=== PATIENT | female | born 1970 | race Caucasian/White ===

== ENCOUNTER → 2020-05-09 | Outpatient (CLI) | payer BC ==
--- NOTE | 2020-05-09 17:18 | MR ---
EXAMINATION TYPE: MR lumbar spine wo con DATE OF EXAM: 05/09/2020 COMPARISON: Radiograph 04/11/2020 HISTORY: 50-year-old female low back pain TECHNIQUE: Multiplanar, multisequence images of the lumbar spine were acquired. FINDINGS: Vertebral body heights are preserved and alignment is maintained. There is a transitional lumbosacral segment that is being denoted as a lumbarized S1. Conus medullaris is normal. Mild heterogeneous marrow signal likely representing red marrow hyperplasia which can be seen with an emia, obesity, smoking, chronic disease. No suspicious bone marrow replacement. Mild degenerative disc disease with mild disc desiccation and mild disc bulging mid and lower lumbar spine. Hypertrophic facet arthropathy lower lumbar spine. No large focal disc herniation or spinal canal stenosis. On the right at L4-L5, there is a disc bulge towards the right minimally narrowing the inferior neuro foramen. At L5-S1, facet arthropathy contributes to minimal narrowing of the neuroforamen. On the left, facet arthropathy contributes to minimal narrowing at L4-L5 and L5-S1 neuroforamen. No prevertebral or paravertebral soft tissue abnormality. IMPRESSION: 1. Transitional lumbosacral segment denoted as a lumbarized S1. 2. Mild degenerative disc disease throughout. Hypertrophic facet arthropathy lower lumbar spine. No m alalignment. 3. No large focal disc herniation or significant spinal canal stenosis. 4. Variable minimal to mild neural foraminal narrowing as outlined above.
== END | disposition home or self-care (01) ==
LOC: RADMRIMAIN 10:51
PROVIDERS: ATTEND Orthopaedic Surgery
DX: M48.061 Spinal stenosis, lumbar region without neurogenic claudication (principal); M48.07 Spinal stenosis, lumbosacral region; M51.36 Other intervertebral disc degeneration, lumbar region; M47.816 Spondylosis without myelopathy or radiculopathy, lumbar region; Q76.49 Other congenital malformations of spine, not associated with scoliosis
CPT/HCPCS: 72148

== ENCOUNTER 2020-06-14 09:22 | Day surgery (SDC) | payer BC ==
[2020-06-10 09:10] VITALS: BMI 28.3
[2020-06-14 09:38] VITALS: TEMP 97
[2020-06-14] MEDS ORDERED: LACTATED RINGERS 1,000 ML IV ONE (09:42)
[2020-06-14] MEDS ORDERED: LIDOCAINE 1% (10MG/ML) FOR IV START INTRADERMA ONE (09:43)
[2020-06-14] MEDS ORDERED: ONDANSETRON 4 MG/2 ML VIAL ONE (09:46)
--- NOTE | 2020-06-14 10:12 | P.PCN ---
Date of Procedure: 06/14/20 Operative Findings: PREOPERATIVE DIAGNOSIS: Lumbar radiculopathy POSTOPERATIVE DIAGNOSIS: Lumbar radiculopathy Attending physician: Tommy Pelayo M.D. PROCEDURE 1. Transforaminal epidural steroid injection under fluoroscopic guidance left L4-L5, L5-S1 2. Lumbar epidurogram ANESTHESIA: Local with 1% lidocaine 3 ml ; IV sedation with Versed and fentanyl , sedation time 18 min PROCEDURE INDICATION: The patient with low back pain and radiculopathy symptoms unresponsive to conservative treatment. Fluoroscopy was used for the procedure and fluoroscopic images were saved to the radiology portion of patient's chart. PROCEDURE DESCRIPTION / TECHNIQUE: The patient was seen and identified in the preoperative area. Risks, benefits, complications, and alternatives were discussed with the patient. The patient agreed to proceed with the procedure and signed the consent. IV was started, and vital signs were stable. Patient was taken to the OR and time out was completed. The patient was placed in the prone position on procedure table and a pillow was placed under the abdomen to reduce lumbar lordosis. The lumbosacral area was prepped and draped in the usual sterile fashion. Vital signs were closely monitored during the procedure. Conscious sedation was used. Using oblique fluoroscopy, the chin of the ``Zeferino dog and the skin and deeper tissues just below was localized with 1% lidocaine. Subsequently, a 22- gauge 3.5-inch spinal needle was advanced under a tunneled view fluoroscopic guidance just underneath the chin of the ``Zeferino dog of the L4 SAP . Under lateral fluoroscopy, the needle was then advanced to the posterior border of the foramen. After negative aspiration of CSF and blood and with no paresthesias, 1 mL of Isovue-200 contrast dye was injected under live fluoroscopy and there was no evidence of intravascular injection. The injectate solution consisting of 5 mg of dexamethasone with 1.5 mL of 0.5% ropivacaine was then delivered. The needle was withdrawn intact. Procedure was then repeated at the L5-S1 level At the end of the procedure, skin was cleansed, and bandages were applied. COMPLICATIONS: None, of ntoe the L5 vertebral body is lumbarized. Recommend using 5 inch for next procedure COMMENTS: DISPOSITION / PLANS: The patient was placed in a supine position and transferred to the recovery area in a stable condition for observation. There was no evidence of lower extremity motor or sensory deficit after the procedure. Patient was discharged from the recovery room after meeting discharge criteria. Home discharge instructions were given to the patient by the staff. The patient will follow up procedure in 2-4 weeks.
[2020-06-14] MEDS ORDERED: IV FLUID CONTINUATION 550 ML IV ONE (10:18)
--- NOTE | 2020-06-14 10:26 | FL ---
EXAMINATION TYPE: FL guided pain mgmt statistic DATE OF EXAM: 06/14/2020 CLINICAL HISTORY: Low back pain. TECHNIQUE: Fluoroscopy. COMPARISON: None. FINDINGS: Fluoroscopic guidance was provided during pain relief procedure performed by Dr. Pelayo . A total of 21 seconds of fluoroscopic time was utilized during the procedure and 3 spot images are a cquired. Images acquired shows needle localization at roughly L4 level from posterior approach with contrast injection off the midline. IMPRESSION: As Above.
[2020-06-14 10:48] VITALS: BP 111/74; PULSE 60; RESP 20
[2020-06-14] MEDS ORDERED: MIDAZOLAM 2 MG/2 ML VIAL ONE (19:46)
[2020-06-14] MEDS ORDERED: IOPAMIDOL M200 10 ML VIAL ONE (19:46)
[2020-06-14] MEDS ORDERED: fentaNYL (PF) 50 MCG/ML 2 ML AMP ONE (19:46)
[2020-06-14] MEDS ORDERED: ROPIVACAINE 5MG/ML 20ML VIAL ONE (19:46)
[2020-06-14] MEDS ORDERED: DEXAMETHASONE SOD PHOSPHATE 10 MG/ML 1 ML VIAL ONE (19:46)
== END 2020-06-14 10:49 | disposition home or self-care (01) ==
LOC: ORPAIN 09:22
PROVIDERS: ATTEND Anesthesiology
DX: M54.16 Radiculopathy, lumbar region (principal); Z78.0 Asymptomatic menopausal state
CPT/HCPCS: 64483; 64484; J2250; J1100; J2405; J3010; Q9966; J2795; 99152

== ENCOUNTER 2020-08-09 13:05 | Day surgery (SDC) | payer BC ==
[2020-07-19 15:50] VITALS: BMI 30.5
[~2020-08-09 13:05] MED LIST: LACTATED RINGERS 1,000 ML IV SCH
[2020-08-09] MEDS ORDERED: LIDOCAINE 1% (10MG/ML) FOR IV START INTRADERMA ONE (14:13)
[2020-08-09] MEDS ORDERED: ONDANSETRON 4 MG/2 ML VIAL ONE (14:15)
[2020-08-09] MEDS ORDERED: ONDANSETRON 4 MG/2 ML VIAL IVP ONE (14:18)
[2020-08-09 14:22] VITALS: RESP 16; TEMP 98.1
[2020-08-09] MEDS ORDERED: MIDAZOLAM 2 MG/2 ML VIAL ONE (14:43)
[2020-08-09] MEDS ORDERED: IOPAMIDOL M200 10 ML VIAL ONE (14:43)
[2020-08-09] MEDS ORDERED: fentaNYL (PF) 50 MCG/ML 2 ML AMP ONE (14:43)
[2020-08-09] MEDS ORDERED: methylPREDNISolone ACETATE 40 MG/ML 1 ML VIAL ONE (14:43)
--- NOTE | 2020-08-09 15:00 | P.PCN ---
Date of Procedure: 08/09/20 Procedure(s) Performed: PREOPERATIVE DIAGNOSIS: Lumbar radiculopathy . POSTOPERATIVE DIAGNOSIS: Same as preoperative diagnoses. PROCEDURE 1. Transforaminal epidural steroid injection under fluoroscopic guidance at left L4-5, L5-S1 leveles. (Fluoroscopy images stored on file in the radiology Department ) 2. Lumbar epidurogram . (#2 ) ANESTHESIA: Local with 1% lidocaine 3 ml , moderate sedation with intravenous Versed 2 mg ,and fentanyle 100 micrograms. EBL: Minimal PROCEDURE INDICATION: The patient with low back pain and radiculopathy symptoms unresponsive to conservative treatment. PROCEDURE DESCRIPTION / TECHNIQUE: The patient was seen and identified in the preoperative area. Risks, benefits, complications, and alternatives were discussed with the patient. The patient agreed to proceed with the procedure and signed the consent. IV was started, and vital signs were stable. Patient was taken to the OR and time out was completed. The patient was placed in the prone position on procedure table and a pillow was placed under the abdomen to reduce lumbar lordosis. The lumbosacral area was prepped and draped in the usual sterile fashion. Critical pause was taken. Vital signs were closely monitored during the procedure. Conscious sedation was used during the procedure to decrease patient s anxiety. Using oblique fluoroscopy, the chin of the ``Zeferino dog at left L4-5 level was identified, and the skin and deeper tissues just below was localized with 1% lidocaine. Subsequently, a 22-gauge 5-inch spinal needle was advanced under a tunneled view fluoroscopic guidance just underneath the chin of the ``Zeferino dog at the left L4-5 Under lateral fluoroscopy, the needle was then advanced to the posterior border of the interforaminal space. After negative aspiration of CSF and blood and with no paresthesias, 1 mL Isovue 200 contrast dye was injected excellent epidurogram and outlining of the nerve root Subsequently, 3 mL of block solution containing 40 mg Depo-Medrol and 2 mL of 0.9% normal saline PF was injected. Needle was removed and the same procedure was repeated at the left L5-S1 level . At the end of the procedure, skin was cleansed, and bandages were applied. COMPLICATIONS:none DISPOSITION / PLANS: The patient was placed in a supine position and transferred to the recovery area in a stable condition for observation. There was no evidence of lower extremity motor or sensory deficit after the procedure. Patient was discharged from the recovery room after meeting discharge criteria. Home discharge instructions were given to the patient by the staff. The patient was reexamined prior to discharge.
[2020-08-09] MEDS ORDERED: IV FLUID CONTINUATION 750 ML IV ONE (15:02)
--- NOTE | 2020-08-09 15:17 | FL ---
Fluoroscopy HISTORY: Pain 3 seconds fluoroscopy time supplied to the referring clinician. 1 intraoperative C-arm images doc ument the procedure. See dictated report from anesthesia.
[2020-08-09 15:23] VITALS: BP 117/80; PULSE 57
== END 2020-08-09 15:29 | disposition home or self-care (01) ==
LOC: ORPAIN 13:05
PROVIDERS: ATTEND Specialist
DX: M47.26 Other spondylosis with radiculopathy, lumbar region (principal); Z98.51 Tubal ligation status; Z78.0 Asymptomatic menopausal state
CPT/HCPCS: 64483; 64484; J2250; J1030; J2405; J3010; Q9966

== ENCOUNTER → 2020-11-07 | Outpatient (CLI) | payer BC ==
[2020-11-07 08:12] VITALS: BP 110/72; PULSE 71; RESP 16; TEMP 97.6
--- NOTE | 2020-11-07 08:21 | P.PN ---
Subjective Progress Note Date: 11/07/20 Principal diagnosis: Russell Jones is a 50-year-old female who presents today for follow-up for low back pain. She reports she's had this back pain for quite some time, she had greater than 80% relief with the previous epidural steroid injections that she had in July. In greater than 4 months since her last injection. She reports that pain is starting to creep back up. She has low back pain across both sides the left side compared to the right. there are some none sensations down her leg. there is no weakness in the lower extremity. she has difficulty standing for long periods time or sits standing up from a seated position. she denies any bowel or bladder incontinence. denies any neck pain or upper extremity weakness. she also has knee pain which she is undergoing physical therapy for she'll participate in low back physical therapy for some time without any s ignificant relief. we discussed that she needs to continue doing EXERCISE and regular basis. we do not prescribe any medications for this Objective - Vital Signs Vital signs: Vital Signs Temp 97.6 F 11/07/20 08:04 Pulse 71 11/07/20 08:04 Resp 16 11/07/20 08:04 BP 110/72 11/07/20 08:04 Pulse Ox 98 11/07/20 08:04 - Exam General: Awake and alert oriented 3 no distress Respiratory exam: No audible wheezing no accessory muscle usage Cardiovascular exam: regular rate, palpable bilateral pulses, no lower extremity edema Abdominal exam: No distention nontender to palpation Cervical spine: Normal alignment, Spurling's negative, facet loading negative, [place] [employer] strength is 5/5, nicolas negative Lumbar spine: Loss of lumbar lordosis, normal alignment, tender to palpation over bilateral paraspinal muscles, facet loading is positive bilaterally. Straight leg raise is positive on the left compared to the right. Limited range of motion due to pain with flexion, extension and side bending. Sacroiliac joints: Tender to palpation over bilateral SI joints and trochanteric bursa bilaterally. Kiki's test is negative. Neuro exam: Normal sensation in bilateral upper extremities, deep tendon reflexes are 2+ bilateral upper extremities. Normal sensation in bilateral lower extremities. Deep tendon reflexes are 1+ bilateral patella and 1+ left Achilles 2+ right Achilles Psych exam: Cooperative, appropriate mood Assessment and Plan Assessment: #1 lumbar radiculopathy #2 lumbar degenerative disc disease #3 Bertolotti's disease Plan: Since isn't had very good relief from the previous injections, spend greater than 4 months since her last injection we can repeat the injection at the left L4 5 and L5-S1 transforaminal epidural steroid injections. I discussed the ster oid load with her and advised her not to have any other steroid injections from any other physician at this time as it can increase her risk of hyperglycemia as well as adrenal insufficiency. She verbalized understanding. We'll schedule her for repeat injections at her convenience. If she is not improved, we should discussed possible left-sided facet joint medial branch blocks and radiofrequenc y ablation. No medications were dispensed today I have spent 22 minutes on patient care today. The time was used to review the medical records including relevant urine studies and Prescription history (MAPs), review of the available imaging, evaluation and examination of the patient, coordination of care with the medical staff and if applicable referring physicians, as well as creation of the medical record. Maps were checked and appropriate, opioid start talking form is on file and updated, urine drug screens of been appropriate and have been reviewed.
== END ==
LOC: PNWHC3 07:55
PROVIDERS: ATTEND Hospitalist
DX: M51.16 Intervertebral disc disorders with radiculopathy, lumbar region (principal); Q76.49 Other congenital malformations of spine, not associated with scoliosis
CPT/HCPCS: 99211

== ENCOUNTER 2020-11-29 06:23 | Day surgery (SDC) | payer BC ==
[2020-11-25 10:39] VITALS: BMI 32.4
[2020-11-29 06:47] VITALS: TEMP 97.2
[2020-11-29] MEDS ORDERED: LIDOCAINE 1% (10MG/ML) FOR IV START INTRADERMA ONE (06:55)
[2020-11-29] MEDS ORDERED: fentaNYL (PF) 50 MCG/ML 2 ML AMP ONE (07:26)
[2020-11-29] MEDS ORDERED: IOPAMIDOL M200 10 ML VIAL ONE (07:26)
[2020-11-29] MEDS ORDERED: DEXAMETHASONE SOD PHOSPHATE 10 MG/ML 1 ML VIAL ONE (07:26)
[2020-11-29] MEDS ORDERED: MIDAZOLAM 2 MG/2 ML VIAL ONE (07:26)
--- NOTE | 2020-11-29 07:49 | P.PCN ---
Date of Procedure: 11/29/20 Surgeon: Donny Noe Pathology: none sent Condition: stable Disposition: PACU Description of Procedure: PREOPERATIVE DIAGNOSIS: Lumbar radiculopathy POSTOPERATIVE DIAGNOSIS: Lumbar radiculopathy PROCEDURE 1. Transforaminal epidural steroid injection under fluoroscopic guidance at L4- 5, and L5-S1 left 2. Lumbar epidurogram. SURGEON: Donny Noe MD ANESTHESIA: Local with 1% lidocaine; IV sedation with Versed and fentanyl. EBL: Minimal PROCEDURE INDICATION: The patient with low back pain and radiculopathy symptoms unresponsive to conservative treatment. PROCEDURE DESCRIPTION / TECHNIQUE: The patient was seen and identified in the preoperative area. Risks, benefits, complications, and alternatives were discussed with the patient. The patient agreed to proceed with the procedure and signed the consent. IV was started, and vital signs were stable. Patient was taken to the OR and time out was completed. The patient was placed in the prone position on procedure table and a pillow was placed under the abdomen to reduce lumbar lordosis. The lumbosacral area was prepped and draped in the usual sterile fashion. Critical pause was taken. Vital signs were closely monitored during the procedure. Conscious sedation was used during the procedure to decrease patients anxiety. The vertebral body of the lumbar vertebra L4, thenL5 were squared off by tilting the C-arm cephalad then the C-arm was tilted to the oblique position and the target point was at the 6 o'clock position of the pedicle of then skin and deeper tissues were localized with 1% lidocaine. Subsequently, a 22- gauge 5-inch spinal needle was advanced under a tunneled view fluoroscopic guidance just underneath the chin of the Zeferino dog at the . Under lateral fluoroscopy, the needle was then advanced to the middle of the upper one third of the foramen between(L4-5,then L5-S1 ). After negative aspiration of CSF and blood and with no paresthesias, 1 mL of omnipaque contrast dye was injected excellent epidurogram and outlining of the L4, then L5 nerve root was identified. Subsequently, 1.5 mL of block solution containing 10 mg of Decadron and 2 mL of Lidocaine 1% PF was injected at each level. Needle was removed . At the end of the procedure, skin was cleansed, and bandages were applied. COMPLICATIONS: None COMMENTS: A copy of needle placement was saved to the C-arm machine DISPOSITION / PLANS: The patient was placed in a supine position and transferred to the recovery area in a stable condition for observation. There was no evidence of lower extremity motor or sensory deficit after the procedure. Patient was discharged from the recovery room after meeting discharge criteria. Home discharge instructions were given to the patient by the staff.
[2020-11-29] MEDS ORDERED: IV FLUID CONTINUATION 750 ML IV ONE (07:50)
[2020-11-29 07:56] VITALS: RESP 20
--- NOTE | 2020-11-29 08:07 | FL ---
EXAMINATION TYPE: FL guided pain mgmt statistic DATE OF EXAM: 11/29/2020 CLINICAL HISTORY: Low back pain. TECHNIQUE: Fluoroscopy. COMPARISON: None. FINDINGS: Fluoroscopic guidance was provided during pain relief procedure performed by Dr. Noe . A total of 14 seconds of fluoroscopic time was utilized during the procedure and 4 spot images are acquired. Images acquired shows needle localization at several levels in the lumbar spine. IMPRESSION: As Above.
[2020-11-29 08:18] VITALS: PULSE 70
[2020-11-29 09:36] VITALS: BP 106/68
== END 2020-11-29 08:19 | disposition home or self-care (01) ==
LOC: ORPAIN 06:23
PROVIDERS: ATTEND Anesthesiology
DX: M54.16 Radiculopathy, lumbar region (principal); M32.9 Systemic lupus erythematosus, unspecified; N95.9 Unspecified menopausal and perimenopausal disorder
CPT/HCPCS: 64483; 64484; J2250; J1100; J2001; J3010; Q9966; 99152

== ENCOUNTER → 2021-01-23 | Outpatient (CLI) | payer BC ==
[2021-01-23 08:43] VITALS: BP 122/82; PULSE 59; RESP 16; TEMP 97.6
--- NOTE | 2021-01-23 09:01 | P.PN ---
Subjective Progress Note Date: 01/23/21 Follow visit for this 50 years old female with a chronic history of severe low back pain, she is diagnosed with lumbar radiculopathy, lumbar foraminal stenosis and lumbar degenerative disc disease, lumbar spondylosis with lumbar facet arthropathy, previously we have done left-sided transforaminal epidural steroid injection at L4 5 and L5-S1 3, patient reported that she got a few weeks of pain relief after each injection, she is complaining of severe low back pain bilaterally but it's more prominent on the left side (80% on the left ) denies any motor or sensory deficit she denies any fever or night sweats , she tried physical therapy in the past without any significant benefit, use [id number] medication for pain relief without any benefit. Objective - Vital Signs Vital signs: Vital Signs Temp 97.6 F 01/23/21 08:41 Pulse 59 L 01/23/21 08:41 Resp 16 01/23/21 08:41 BP 122/82 01/23/21 08:41 Pulse Ox 97 01/23/21 08:41 - Exam Physical Examinations : -Constitutiona : Cooperative , not in acute distress . -HEENT : nech : supple , no Lymphadenopathy , normal thyroid size . : eyes : no ptosis , no icterus, no photophobia . - neurologic : Cranial nerve II to XII intact , no focal neurological deffecit . -psychatric : alert , oriented X 3 , appropriate affect , intact judgment and insight . -Lymphatic : no Lymphadenopathy . - musculoskeltal : Lumber spine moter stegnth lower extremities ,thigh and legs 5/5 Right side , 5/5 Left side deep tendon reflexes : normal Knee Jerk , normal ankle Jerk lumber facet Loading Test =positive Right , positive Left Range of motion of the lumbar spine Flexion 30 degrees, extension 10 degrees strait leg raising test = negative bilaterally Fabere test= positive Right , and positive LT . Sever tenderness over the Sacroiliac joint on the Left sides Gaenslen test= positive left . Seated flexion test= positive Left . Distraction test= positive left Tenderness over the left trochanteric bursa MRI of the lumbar spine done at the current [facility]= L4 5 and L5-S1 degenerative disc disease and bilateral foraminal stenosis and lumbar facet arthropathy Assessment and Plan Plan: Assessment and plan=1-lumbar radiculopathy. 2-lumbar foraminal stenosis. 3-lumbar degenerative disc disease. 4-lumbar spondylosis with lumbar facet arthropathy. She continued to have severe low back pain after left transforaminal epidural steroid injection 3 Patient could benefit from diagnostic medial branch block and possible RFA of L3,L4 ,L5 Medial Branch bilateral - PQRS measures = - Patient's medications are documented in the chart. -Tobacco use is negative and counseling.Given. -Patient's has not received pneumococcal vaccine. -Advanced care planning discussed, patient not eligible. -Opiate contract not signed. -Pain positive and follow-up visit/procedure is scheduled. -Patient's blood pressure measured [ 122/82 ] , and documented in the record ,and patient will follow up with the primary care. -Patient's weight was measured and body mass index [ ] above the normal limits and counseling was done. and patient instructed to follow-up with the primary care physician. -Patient was not identified as an unhealthy alcohol user Time with Patient: Less than 30
== END | disposition home or self-care (01) ==
LOC: PNWHC3 08:30
PROVIDERS: ATTEND Specialist
DX: M48.061 Spinal stenosis, lumbar region without neurogenic claudication (principal); M51.16 Intervertebral disc disorders with radiculopathy, lumbar region; M46.96 Unspecified inflammatory spondylopathy, lumbar region; M47.26 Other spondylosis with radiculopathy, lumbar region
CPT/HCPCS: 99211

== ENCOUNTER 2021-02-14 06:10 | Day surgery (SDC) | payer BC ==
[2021-02-10 13:26] VITALS: BMI 33.7
[2021-02-14 06:42] VITALS: TEMP 97.8
[2021-02-14] MEDS ORDERED: LACTATED RINGERS 1,000 ML IV ONE (06:48)
[2021-02-14] MEDS ORDERED: fentaNYL (PF) 50 MCG/ML 2 ML AMP ONE ×2 (07:28→07:53)
[2021-02-14] MEDS ORDERED: ROPIVACAINE 5MG/ML 20ML VIAL ONE ×2 (07:28→07:53)
[2021-02-14] MEDS ORDERED: TRIAMCINOLONE ACETONIDE 40 MG/ML 1 ML VIAL ONE ×2 (07:28→07:53)
[2021-02-14] MEDS ORDERED: MIDAZOLAM 2 MG/2 ML VIAL ONE ×2 (07:28→07:53)
--- NOTE | 2021-02-14 07:45 | P.PCN ---
Date of Procedure: 02/14/21 Surgeon: Donny Noe Pathology: none sent Condition: stable Disposition: PACU Description of Procedure: PREOPERATIVE DIAGNOSIS : 1- Lumbar spondylosis with Facet Arthropathy without myelopathy . 2- Lumber degenerative disc disease POSTOPERATIVE DIAGNOSIS: 1- Lumbar spondylosis with Facet Arthropathy without myelopathy . 2- Lumber degenerative disc disease PROCEDURE: Diagnostic bilateral L4 -5 , and L5-S1 medial branch block under fluoroscopy Physician: Donny Noe MD ANESTHESIA: Local with 1% lidocaine; IV moderate conscious sedation with Versed 2 mg and fentanyl 100 g . EBL: Negligible COMPLICATION: None. PROCEDURE INDICATION: Chronic low back pain secondary to Facet arthropathy unresponsive to conservative treatment. PROCEDURE DESCRIPTION: the patient was seen and identified in the preop holding area , risks and benefits and possible complications of the procedure and alternatives were discussed with the patient, and the patient agreed to proceed with the procedure and signed the consent. IV was started and vital signs monitored during the procedure and fluoroscopy was used to maximize the benefit and accuracy of the needle placement, sedation was given to decrease patient anxiety, patient was taken to the procedure room and placed in prone position vital signs monitored. The patient was brought into the procedure room and placed in prone position. Skin was prepped with Chloraprep and draped in a sterile manner. Lidocaine 1% was used to numb the skin up at the target points that were chosen as follows: at the L5-S1 level which corresponds to the dorsal ramus of L5 the target points were at the superior medial aspect of the sacral ala on each side of the spine on the AP view of fluoroscopy, and for the L3 and L4 medial branches the target points were the connection between the transverse process and the superior to go process of L4 and L5 respectively on the oblique views of fluoroscopy. I used 22-gauge 3-1/2 inch Quincke spinal needles for this procedure and after contacting bone at the target points mentioned above I injected 1 mL of a mixture of Kenalog 40 mg +5 MLS of Ropivacaine 0.5% PF . Patient tolerated procedure well. At the end of the procedure the needles removed and a bandage applied after the skin was cleaned the cleaning solution. patient was then taken to the recovery room in stable condition and monitored in the recovery room for 20-30 minutes and discharged home in stable condition after discharge criteria met . A copy of the needle placement picture was saved to the C-arm machine.
[2021-02-14] MEDS ORDERED: IV FLUID CONTINUATION 1,000 ML IV ONE ×2 (07:49)
[2021-02-14 07:52] VITALS: RESP 16
[2021-02-14 08:09] VITALS: BP 93/54; PULSE 66
--- NOTE | 2021-02-14 08:15 | FL ---
EXAMINATION TYPE: FL guided pain mgmt statistic DATE OF EXAM: 02/14/2021 CLINICAL HISTORY: Low back pain. TECHNIQUE: Fluoroscopy. COMPARISON: None. FINDINGS: Fluoroscopic guidance was provided during pain relief procedure performed by Dr. Noe . A total of 9 seconds of fluoroscopic time was utilized during the procedure and 4 spot images are a cquired. Images acquired shows needle localization at several levels in the lumbar spine. IMPRESSION: As Above.
== END 2021-02-14 08:26 | disposition home or self-care (01) ==
LOC: ORPAIN 06:10
PROVIDERS: ATTEND Anesthesiology
DX: M47.816 Spondylosis without myelopathy or radiculopathy, lumbar region (principal); G89.29 Other chronic pain; M51.36 Other intervertebral disc degeneration, lumbar region
CPT/HCPCS: 64493; 64494; J2250; J3301; J3010; J2795; 99152

== ENCOUNTER 2021-03-21 08:25 | Day surgery (SDC) | payer BC ==
[2021-03-15 14:31] VITALS: BMI 34.1
[2021-03-21 09:02] VITALS: TEMP 98.5
[2021-03-21] MEDS ORDERED: LIDOCAINE 1% (10MG/ML) FOR IV START INTRADERMA ONE (09:03)
[2021-03-21] MEDS ORDERED: ROPIVACAINE 5MG/ML 20ML VIAL ONE (09:11)
[2021-03-21] MEDS ORDERED: TRIAMCINOLONE ACETONIDE 40 MG/ML 1 ML VIAL ONE (09:11)
[2021-03-21] MEDS ORDERED: MIDAZOLAM 2 MG/2 ML VIAL ONE (09:11)
[2021-03-21] MEDS ORDERED: fentaNYL (PF) 50 MCG/ML 2 ML AMP ONE (09:11)
[2021-03-21] MEDS ORDERED: MIDODRINE HCL 2.5 MG PO PRN (09:22)
[2021-03-21] MEDS ORDERED: ALPRAZolam 0.25 MG TAB PO PRN (09:22)
[2021-03-21] MEDS ORDERED: EMGALITY IJ SCH (09:30)
[2021-03-21] MEDS ORDERED: ARIPiprazole 5 MG TAB PO SCH (09:30)
[2021-03-21] MEDS ORDERED: LACTATED RINGERS 1,000 ML IV SCH (09:30)
[2021-03-21] MEDS ORDERED: ESTRADIOL TRANSDERM SCH (09:30)
--- NOTE | 2021-03-21 09:38 | P.PCN ---
Date of Procedure: 03/21/21 Operative Findings: Pre- and Post-operative Diagnosis: Lumbar facet arthropathy, and lumbar spondylosis without myelopathy. Procedure: #2 Diagnostic Medial Branch Block at bilateral Lumbar 4/5 and #2 diagnostic dorsal ramus block at Lumbar 5/ sacral ala levels (total 4 levels) Surgeon: Alex Ocampo Anesthesia: Local: 1% Lidocaine, IV sedation : Versed 2 mg and fentanyl 100 g. Complications: None EBL: None Specimen removed: None Fluoroscopic image: Saved to patient electronic medical records. Indications for Procedure: The patient is well known to pain clinic for his chronic low back pain management. The lumbar facet loading test was positive with a clinical diagnosis of lumbar facet arthropathy. Failed with conservative therapy. Patient had a great pain relief with the previous lumbar medial branch block. Came here for interventional help for better pain relief. Procedure and Findings: The patient was seen and examined. The written informed consent was obtained after explaining the risks, benefits and alternatives of the procedure to the patient. The patient was brought to the procedure room and was placed in the prone position on the operating table table. A pillow was placed under the abdomen to reduce lumbar lordosis. Standard anesthesia monitoring was done through out the procedure. The skin preparation was done with ChloraPrep X1, and draping was done in usual sterile fashion. Sterile technique was observed throughout the procedure. Under fluoroscopic guidance, right-sided the Lumbar 4, 5 and Sacral ala levels were identified in the AP view. For lumbar L4, and L5 levels the targeting area of superior articular process, and close to the most medial and superior aspect of transverse process identified, marked. 1ml of 1% Lidocaine was used with a 25 gauge needle to achieve adequate local anesthesia of the skin and subcutaneous tissue at each level. A 22 gauge 3.5 inch spinal needle was placed and advanced targeting area which was close to the most medial and superior aspect of the transverse process. For Lumbar 5/ sacral ala level, fluoroscope was used in the anteroposterior view, and the needle tip was placed at the superior and most medial part of sacral ala close to the superior articular process. A bony contact was obtained and needle tip position was confirmed at anteroposterior view. No paresthesia was noted. A negative aspiration was confirmed. 1 ml solution per level was injected, the block solution containing 5 ml of 0.5% ropivacaine preservative-free solution mixed with 40 MG of Kenalog. The needles were removed intact. Entire procedure repeated on the left side. Lumbar area was cleaned and bandages were applied. Disposition : The patient tolerated the procedure very well. The patient was transferred to the recovery room and remained stable until discharged home. The patient was given detailed discharge instructions for infecti a on, bleeding, and increased pain at the injection site, and was advised to seek immediate medical attention should significant side effects develop. The patient will be scheduled with Pain Clinic within 4 weeks for lumbar radiofrequency ablation if it's helpful.
[2021-03-21 10:01] VITALS: BP 101/66; PULSE 64; RESP 16
--- NOTE | 2021-03-21 10:57 | FL ---
EXAMINATION TYPE: FL guided pain mgmt statistic DATE OF EXAM: 03/21/2021 CLINICAL HISTORY: Low back pain. TECHNIQUE: Fluoroscopy. COMPARISON: None. FINDINGS: Fluoroscopic guidance was provided during pain relief procedure performed by Dr. Milner . A total of 7 seconds of fluoroscopic time was utilized during the procedure and two spot images are acquired. Images acquired shows needle localization at several levels in the lumbar spine. IMPRESSION: As Above.
[2021-03-21] MEDS ORDERED: [UNRECOGNIZED DRUG - OTHER] PO SCH (18:30)
[2021-03-21] MEDS ORDERED: NON FORMULARY DRUG (Cyanocobalamin (Vitamin B-12) [Vitamin B-12] 1,000 MCG Tablet) PO SCH (18:30)
[2021-03-21] MEDS ORDERED: CHOLECALCIFEROL PO SCH (18:30)
[2021-03-21] MEDS ORDERED: NON FORMULARY DRUG (Progesterone, Micronized [Progesterone] 100 MG Capsule) PO SCH (21:00)
[2021-03-21] MEDS ORDERED: HYDROXYCHLOROQUINE SULFATE 200 MG TAB PO SCH (21:00)
[2021-03-21] MEDS ORDERED: NON FORMULARY DRUG (Gabapentin [Gabapentin] 600 MG Tablet) PO SCH (21:00)
[2021-03-21] MEDS ORDERED: traZODone HCL 100 MG TAB PO SCH (21:00)
[2021-03-21] MEDS ORDERED: PRAMIPEXOLE DI HCL 1.5 MG PO SCH (21:00)
[2021-03-22] MEDS ORDERED: modafiniL 100 MG TAB PO SCH (09:00)
[2021-03-22] MEDS ORDERED: FERROUS SULFATE 325 MG TAB PO SCH (09:00)
[2021-03-22] MEDS ORDERED: NON FORMULARY DRUG (Fluoxetine Hcl [Sarafem] 60 MG Tablet) PO SCH (09:00)
[2021-03-22] MEDS ORDERED: MULTIVITAMINS, THERA 1 EACH TAB PO SCH (09:00)
[2021-03-22] MEDS ORDERED: THYROID PORK 120 MG PO SCH (09:00)
== END 2021-03-21 10:15 | disposition home or self-care (01) ==
LOC: ORPAIN 08:25
DX: M47.816 Spondylosis without myelopathy or radiculopathy, lumbar region (principal); G89.29 Other chronic pain; M32.9 Systemic lupus erythematosus, unspecified
CPT/HCPCS: 64493; 64494; J2250; J3301; J3010; J2795; 99152

== ENCOUNTER → 2021-04-19 | Outpatient (CLI) | payer BC ==
[2021-04-19 08:20] VITALS: BP 107/74; PULSE 64
--- NOTE | 2021-04-19 08:27 | P.PN ---
Subjective Progress Note Date: 04/19/21 This is Follow up visit for this 51 years old, female with a chronic history of severe low back pain, she is diagnosed with lumbar radiculopathy, lumbar foraminal stenosis and lumbar degenerative disc disease, lumbar spondylosis with lumbar facet arthropathy, recently we have done bilateral medial branch block lumbar area at L3, L4, L5, bilaterally and she reported that she that 100% relief after each injection and the pain relief was only for short term , he reported that her VAS before the first block was 7/10 dropped to 0 immediately after the block and she gets similar results after the second block,she denies any motor or sensory deficit she denies any fever or night sweats , she tried physical therapy in the past without any significant benefit, use [id number] medication for pain relief without any benefit. Physical Examinations : -Constitutiona : Cooperative , not in acute distress . -HEENT : nech : supple , no Lymphadenopathy , normal thyroid size . : eyes : no ptosis , no icterus, no photophobia . - neurologic : Cranial nerve II to XII intact , no focal neurological deffecit . -psychatric : alert , oriented X 3 , appropriate affect , intact judgment and insight . -Lymphatic : no Lymphadenopathy . - musculoskeltal : Lumber spine moter stegnth lower extremities ,thigh and legs 5/5 Right side , 5/5 Left side deep tendon reflexes : normal Knee Jerk , normal ankle Jerk lumber facet Loading Test =positive Right , positive Left MRI of the lumbar spine done at [facility]= L4 5 and L5-S1 d egenerative disc disease and bilateral foraminal stenosis and lumbar facet arthropathy Assessment and plan= 1-lumbar degenerative disc disease. 2-lumbar spondylosis with lumbar facet arthropathy. Had 100% improvement of her low back pain after diagnostic medial branch block x2 Patient could benefit from RFA medial branch at L3,L4 ,L5 bilateral - PQRS measures = - Patient's medications are documented in the chart. -Tobacco use is negative and counseling.Given. -Patient's has not received pneumococcal vaccine. -Advanced care planning discussed, patient not eligible. -Opiate contract not signed. -Pain positive and follow-up visit/procedure is scheduled. -Patient's blood pressure measured [ 107/74 ] , and documented in the record ,and patient will follow up with the primary care. -Patient's weight was measured and body mass index [ ] above the normal limits and counseling was done. and patient instructed to follow-up with the primary care physician. -Patient was not identified as an unhealthy alcohol user Objective - Vital Signs Vital signs: Vital Signs Temp Pulse 64 04/19/21 08:05 Resp BP 107/74 04/19/21 08:05 Pulse Ox 95 04/19/21 08:05
== END | disposition home or self-care (01) ==
LOC: PNWHC3 07:41
PROVIDERS: ATTEND Specialist
DX: M51.36 Other intervertebral disc degeneration, lumbar region (principal); M47.896 Other spondylosis, lumbar region; M46.96 Unspecified inflammatory spondylopathy, lumbar region
CPT/HCPCS: 99211

== ENCOUNTER 2021-07-21 06:10 | Day surgery (SDC) | payer BC ==
[2021-07-19 17:45] VITALS: BMI 32.9
[2021-07-21 06:34] VITALS: TEMP 97.4
[2021-07-21] MEDS ORDERED: ONDANSETRON 4 MG/2 ML VIAL ONE (06:44)
[2021-07-21] MEDS ORDERED: DEXAMETHASONE SOD PHOSPHATE 4 MG/ML 1 ML VIAL IVP ONE (06:49)
[2021-07-21] MEDS ORDERED: fentaNYL (PF) 50 MCG/ML 2 ML AMP ONE (07:18)
[2021-07-21] MEDS ORDERED: TRIAMCINOLONE ACETONIDE 40 MG/ML 1 ML VIAL ONE (07:18)
[2021-07-21] MEDS ORDERED: MIDAZOLAM 2 MG/2 ML VIAL ONE (07:18)
[2021-07-21] MEDS ORDERED: ROPIVACAINE 5MG/ML 20ML VIAL ONE (07:18)
--- NOTE | 2021-07-21 07:59 | P.PCN ---
Date of Procedure: 07/21/21 Surgeon: Donny Noe Pathology: none sent Condition: stable Disposition: PACU Description of Procedure: PREOPERATIVE DIAGNOSIS: Lumbar spondylosis without myelopathy POSTOPERATIVE DIAGNOSIS: Lumbar spondylosis without myelopathy PROCEDURES : Radiofrequency thermocoagulation L4-L5, and L5-S1 medial branch bilaterally with fluoroscopic guidance ANESTHESIA: IV moderate conscious sedation by the anesthesia Department Physician:Donny Noe MD EBL: Minimal PROCEDURE INDICATION: The patient with low back pain secondary to lumbar facet arthropathy who had more than 50% relief of her pain with previous diagnostic lumbar medial branch block with bupivacaine. PROCEDURE DESCRIPTION / TECHNIQUE: The patient was seen and identified in the preoperative area. Risks, benefits, complications, including but not limited to risk of infection ,bleeding , allergic reactions to the medications and no complete pain relief , and alternatives were discussed with the patient, the patient agreed to proceed with the procedure and signed the consent. IV was started. Vital signs remained stable throughout the procedure. Patient was taken to the OR and time out was completed. The patient was placed in the prone position on the procedure table. The lumber area was prepped and draped in the usual sterile fashion. . Vital signs were closely monitored during the procedure .IV sedation was used during the procedure to decrease patients anxiety. The target points were identified as follows: For the L5-S1 level which corresponds to the dorsal ramus of L5 the target point was at the superior medial aspect of the sacral ala on the Rt side of the spine on the AP view of fluoroscopy and for the L3, and L4 medial branches the target points were at the connection between the transverse process and the superior articular process of L4, and L5 vertebra respectively on the Rt oblique view of fluoroscopy. skin was marked, and localized with 1% lidocaineat these points. Subsequently, an 18 -uj radiofrequency needles with a 10-mm curved active tips were advanced guided by fluoroscopy to each of the target points mentioned above in a superior medial direction to get the active tips as parallel as possible to the medial branches tracks. AP, oblique, and lateral views of fluoroscopy were used to verify needle tips position. Each level then underwent motor testing at 2.5 Hz and 0 to 3 volt with local stimulation, but no radicular symptoms down the legs. I then injected 1 mL of lidocaine 1% in each needle before starting radiofrequency thermocoagulation at 80 degrees celsius for 90 seconds. After that I injected 1 ml of PF Ropivacaine 0.5%(3 mls) with 40 mg of Kenalog, 1 mL of this mixture was given in each needle before taking the needles out intact. Then the left side with the same levels was done in the same manner. At the end of the procedure, the skin was cleansed and bandages were applied. A copy of needle placement fluoroscopy was saved on the C-arm machine. COMPLICATIONS: No acute complications. DISPOSITION / PLANS: The patient was placed in a supine position and transferred to the recovery area in a stable condition for observation and was discharged from the recovery room after meeting discharge criteria. Home discharge instructions given to the patient by the staff. The patient was reexamined prior to discharge. The patient will schedule a follow up in the clinic in 2-4 weeks.
[2021-07-21] MEDS ORDERED: IV FLUID CONTINUATION 1,000 ML IV ONE (08:03)
--- NOTE | 2021-07-21 08:10 | FL ---
EXAMINATION TYPE: FL guided pain mgmt statistic DATE OF EXAM: 07/21/2021 FLUOROSCOPY Fluoroscopy time of 28 seconds was used during bilateral lumbar facet radiofrequency ablation. 3 renny ge/s document/s the procedure.
[2021-07-21 08:24] VITALS: BP 110/65; PULSE 78; RESP 18
== END 2021-07-21 08:39 | disposition home or self-care (01) ==
LOC: ORPAIN 06:10
PROVIDERS: ATTEND Anesthesiology
DX: M47.816 Spondylosis without myelopathy or radiculopathy, lumbar region (principal); F17.200 Nicotine dependence, unspecified, uncomplicated; G47.33 Obstructive sleep apnea (adult) (pediatric); E07.9 Disorder of thyroid, unspecified; M79.7 Fibromyalgia; M06.9 Rheumatoid arthritis, unspecified; F41.9 Anxiety disorder, unspecified; F43.10 Post-traumatic stress disorder, unspecified; K21.9 Gastro-esophageal reflux disease without esophagitis; Z79.890 Hormone replacement therapy; Z79.899 Other long term (current) drug therapy; Z88.6 Allergy status to analgesic agent
CPT/HCPCS: 64635; 64636; J2250; J1100; J3301; J2405; J2001; J3010; J2795; 99152; 99153